=== PATIENT | female | born 1970 | race Caucasian/White ===

== ENCOUNTER 2019-02-18 14:33 | Outpatient (CLI) | payer OTHER ==
[~2019-02-18 14:33] MED LIST: Gadobenate Dimeglumine 529 MG/1 ML (20ML VIAL) ONE
--- NOTE | 2019-02-18 16:37 | MRI ---
MRI BRAIN WITH AND WITHOUT IV CONTRAST: HISTORY: A 48-year-old female with migraine without aura, intractable. Headache. FINDINGS: No restricted diffusion is seen. No evidence of infarct, hemorrhage, mass, midline shift, or abnorma l extraaxial fluid collections is seen. There are foci of T2 prolongation in the periventricular whi te matter, which may be due to migraine headaches or mild chronic small vessel ischemic disease. The ventricular size is normal, and the basilar cisterns are patent. No abnormal post contrast enhancem ent is identified. There is 6mm tonsillar herniation, consistent with Chiari I malformation. IMPRESSION: 1. No evidence of acute intracranial process or mass. 2. Chiari I malformation. POS: [facility]
== END 2019-02-18 14:34 | disposition home or self-care (01) ==
LOC: SCSMRI 14:33
PROVIDERS: ATTEND Psychiatry & Neurology Neurology
DX: G43.019 Migraine without aura, intractable, without status migrainosus (principal); G93.5 Compression of brain
CPT/HCPCS: 70553; 82565; A9577

== ENCOUNTER 2019-03-13 13:50 | Outpatient (CLI) | payer OTHER ==
--- NOTE | 2019-03-13 15:34 | MRI ---
CERVICAL SPINE MRI NONCONTRAST: 03/13/19 CLINICAL HISTORY: Cervical spine. No prior imaging comparison. FINDINGS: Cervical spinal cord demonstrates appropriate caliber, contour and signal intensity. C1-2 level reveals no evidence of central canal stenosis. C2-3: No central canal or neural foraminal stenosis. C3-4: No significant central canal or neural foraminal stenosis. C4-5: Slight left asymmetric disc osteophyte and uncinate process hypertrophy with mild left foramina l narrowing. No significant right foraminal stenosis or central canal compromise. C5-6: Mild disc bulge with slight effacement of the ventral thecal sac. Minimal narrowing of the left neural foramen. No significant right foraminal narrowing. C6-7: Mild left asymmetric disc osteophyte without high grade central canal stenosis. There is slight effacement of the ventral perineural fat of the left foramen. No right foraminal stenosis. C7-T1: No significant central canal or neural foraminal narrowing. No evidence of acute marrow edema. No compression deformity or significant subluxation. IMPRESSION: Mild degenerative change of the cervical spine, as outlined above. POS: [facility]
== END 2019-03-13 13:51 | disposition home or self-care (01) ==
LOC: SCSMRI 13:50
PROVIDERS: ATTEND Neurological Surgery
DX: M54.2 Cervicalgia (principal); M47.812 Spondylosis without myelopathy or radiculopathy, cervical region
CPT/HCPCS: 72141